=== PATIENT | female | born 1940 | race Caucasian/White ===

== ENCOUNTER 2016-12-19 13:21 | Inpatient (IN) | payer OTHER, MEDICAID ==
[~2016-12-19] VITALS: Ht 167.6 cm; Wt 82.6 kg
[2016-12-19] MEDS ORDERED: SODIUM CHLORIDE 0.9% 500 ML IV ONE (14:29)
[2016-12-19] MEDS ORDERED: BACITRACIN ZINC OINT UDPKT TOP ONE (14:30)
[2016-12-19 14:52] LABS: BASOPHILS % 0.8 % (0.0-2.0); EOSINOPHILS % 1.8 % (0.0-5.0); HEMATOCRIT. 44.1 % (36.0-48.0); HEMOGLOBIN. 14.9 g/dL (12.0-16.0); LYMPHOCYTES % 25.1 % (20.0-50.0); MEAN CORPUSCULAR HEMOGLOBIN 28.2 pg (28.0-32.0); MEAN CORPUSCULAR VOLUME 83.5 fL (81.0-99.0); MEAN PLATELET VOLUME 8.2 fl (7.4-10.4); MONOCYTES % 5.2 % (2.0-8.0); NEUTROPHILS % 67.1 % (40.0-76.0); PLATELET 218 x1000/uL (130-400); RED BLOOD CELL COUNT 5.28 mill/uL (4.2-5.4); RED CELL DISTRIBUTION WIDTH 15.2 % (11.6-14.6)
[2016-12-19 15:01] LABS: PARTIAL THROMBOPLASTIN TIME 26.7 sec (23.4-31.0); PROTHROMBIN TIME 10.6 sec (9.4-11.6)
[2016-12-19 15:10] LABS: CARBON DIOXIDE 26 mEq/L (21-32); CHLORIDE 105 mEq/L (98-107)
[2016-12-19 15:11] LABS: CREATINE KINASE MB FRACTION 0.9 ng/mL (0.5-3.6); TROPONIN I 0.04 ng/mL (0.00-0.04)
[2016-12-19] MEDS ORDERED: TRAMADOL 50MG TABLET PO ONE (17:30)
[2016-12-19] MEDS ORDERED: RISP2TAB22 PO (18:55)
[2016-12-19] MEDS ORDERED: BENZ0.5T3 PO (18:56)
[2016-12-19 21:54] VITALS: BP 171/82
[2016-12-19] MEDS ORDERED: ACETAMINOPHEN 325MG TABLET PO PRN (23:45)
[2016-12-20] VITALS (7 sets, daily range): BP systolic 121–150; BP diastolic 63–96
[2016-12-20] MEDS: LOSARTAN POTASSIUM 50 MG TABLET PO SCH ×3 (00:31→21:55)
[2016-12-20] MEDS: SODIUM CHLORIDE 0.9% 1,000 ML IV SCH (00:32)
[2016-12-20] MEDS: MORPHINE SULFATE 4 MG/ML CPJ (NOT FOR IM USE) IV PRN (08:55)
[2016-12-20] MEDS: ENOXAPARIN 30MG/0.3ML SYR SUBCUT SCH ×2 (08:55→21:55)
[2016-12-20] MEDS: LEVOFLOXACIN 500MG TABLET PO SCH (11:51)
[2016-12-20] MEDS ORDERED: SERT100T PO (13:04)
[2016-12-20] MEDS ORDERED: MEDICATION NOT ON FORMULARY EA (Risperidone 1 TAB) PO SCH (17:00)
[2016-12-20] MEDS ORDERED: RISPERIDONE 1MG TABLET PO SCH (21:00)
[2016-12-20] MEDS ORDERED: BENZTROPINE MESYLATE 0.5MG TABLET PO SCH (21:00)
[2016-12-21] VITALS: BP 111/59
[2016-12-21 04:00] VITALS: BP 125/65
[2016-12-21] MEDS: MORPHINE SULFATE 4 MG/ML CPJ (NOT FOR IM USE) IV PRN (04:44)
[2016-12-21 08:00] VITALS: BP 105/62
[2016-12-21] MEDS: ENOXAPARIN 30MG/0.3ML SYR SUBCUT SCH (10:14)
[2016-12-21] MEDS: LOSARTAN POTASSIUM 50 MG TABLET PO SCH (10:14)
[2016-12-21] MEDS: SODIUM CHLORIDE 0.9% 1,000 ML IV SCH (10:15)
[2016-12-21 12:00] VITALS: BP 117/61
[2016-12-21] MEDS ORDERED: LACTULOSE 20G/30ML UDC PO NR (12:15)
[2016-12-21] MEDS: LEVOFLOXACIN 500MG TABLET PO SCH (14:23)
[2016-12-21 14:48] VITALS: BP 117/61
[2016-12-22] MEDS ORDERED: ENOXAPARIN 40MG/0.4ML SYR SUBCUT SCH (09:00)
== END 2016-12-21 15:10 | disposition home or self-care (01) | DRG 74 ==
LOC: ER 13:25 → OBSVTOIN 16:27 → INTOOBSV 16:27 → 8WST 16:27 → EDBEDREQ 16:37 → ENRESERV 20:38 → 8WST 23:54
PROVIDERS: ADMIT Internal Medicine; ATTEND Internal Medicine
DX: G90.8 Other disorders of autonomic nervous system (principal); M48.02 Spinal stenosis, cervical region; I10 Essential (primary) hypertension; S00.81XA Abrasion of other part of head, initial encounter; F20.9 Schizophrenia, unspecified; W01.0XXA Fall on same level from slipping, tripping and stumbling without subsequent striking against object, initial encounter; Y93.89 Activity, other specified; Y92.098 Other place in other non-institutional residence as the place of occurrence of the external cause; Y99.8 Other external cause status; M47.9 Spondylosis, unspecified; M51.36 Other intervertebral disc degeneration, lumbar region
CPT/HCPCS: 36415; 70450; 70486; 71010; 72125; 72170; 73562; 80053; 82553; 83735; 83880; 84443; 84484; 85025; 85610; 85730; 93005; 96360; 96361; 99285; G0378; J1650; J2270; J7030; J7040

== ENCOUNTER 2023-10-18 05:33 | Emergency (ER) | payer OTHER, MEDICAID ==
[~2023-10-18] VITALS: Ht 170.2 cm; Wt 78.0 kg
[~2023-10-18 05:33] MED LIST: BENZ0.5T3 PO; RISP-29 PO; SERT100T PO
[2023-10-18 05:38] VITALS: O2SAT 97
[2023-10-18 09:10] VITALS: BP 124/78; PULSE 78; RESP 16; TEMP 98.4
== END 2023-10-18 09:20 | disposition home or self-care (01) ==
LOC: ER 05:33
DX: S09.90XA Unspecified injury of head, initial encounter (principal); F32.A Depression, unspecified; W06.XXXA Fall from bed, initial encounter; Y93.89 Activity, other specified; Y92.89 Other specified places as the place of occurrence of the external cause; Y99.8 Other external cause status
CPT/HCPCS: 99284